=== PATIENT | female | born 2000 | race Caucasian/White ===

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

== ENCOUNTER 2021-03-02 05:46 | Emergency (ER) | payer OTHER ==
[~2021-03-02 05:46] MED LIST changes: +ZOFRAN ODT 4 MG4 MG SL
== END 2021-03-02 07:51 | disposition left against medical advice (07) ==
LOC: ER1 05:46
DX: Z53.21 Procedure and treatment not carried out due to patient leaving prior to being seen by health care provider (principal)